=== PATIENT | male | born 1995 | race Caucasian/White ===

== ENCOUNTER 2022-01-28 17:54 | Emergency (ER) | payer BC ==
[~2022-01-28] VITALS: Ht 185.4 cm; Wt 86.2 kg
--- NOTE | 2022-01-28 18:32 | NUR ---
POISON CONTROL ([facility]) [phone] - DO NOT GIVE ROMAZICON/FLUMAZENIL (WILL CAUSE WITHDRAWAL SEIZURES) - 4-6 HOURS OBSERVATION OR UNTIL PATIENT IS BACK TO BASELINE - CMP, ALCOHOL, TYLENOL, DRUG SCREEN AND ASPIRIN LEVEL - NO NEED FOR EKG, NO EKG CHANGES EXPECTED FOR XANAX OD * CALL FOR ANY OTHER CHANGES OR IF FAMILY STATES PATIENT TOOK SOME OTHER MEDICATION WITH XANAX.
[2022-01-28 18:47] LABS: CALCIUM, SERUM 8.8 mg/dL (8.5-10.1); CARBON DIOXIDE 29 mmol/L (21-32); CHLORIDE 105 mmol/L (98-107); CREATININE 0.9 mg/dL (0.6-1.3); GLUCOSE 106 mg/dL (74-106); POTASSIUM 3.5 mmol/L (3.5-5.1); SODIUM SERUM 141 mmol/L (136-145); UREA NITROGEN, BLOOD 9 mg/dL (7-18)
[2022-01-28 18:52] LABS: ALANINE AMINOTRANSFERASE 22 U/L (12-78); ALBUMIN 3.8 g/dL (3.4-5.0); ALKALINE PHOSPHATASE 65 U/L (46-116); ASPARTATE AMINOTRANSFERASE 13 U/L (15-37); BILIRUBIN,DIRECT 0.2 mg/dL (0.0-0.2); BILIRUBIN,TOTAL 0.8 mg/dL (0.2-1.0); TOTAL PROTEIN, SERUM 7.1 g/dL (6.4-8.2)
[2022-01-28 19:05] LABS: ACETAMINOPHEN < 0 ug/ml (10-30); ALCOHOL, BLOOD < 3 mg/dL (0-0)
--- NOTE | 2022-01-28 19:11 | NUR ---
URINE SPECIMEN COLLECTED
--- NOTE | 2022-01-28 19:44 | NUR ---
COVID SWAB DONE AND SENT TO LAB
--- NOTE | 2022-01-28 19:54 | NUR ---
PATIENTS MOM IS AT BEDSIDE
[2022-01-28 20:03] LABS: BASOPHILS % (AUTO) 0.4 % (0.0-2.0); EOSINOPHILS % (AUTO) 1.1 % (0.0-6.0); HEMATOCRIT 39 % (39-51); HEMOGLOBIN 13.8 g/dL (13.5-17.5); LYMPHOCYTES # (AUTO) 1.4 K/uL (0.8-4.8); LYMPHOCYTES % (AUTO) 26.9 % (20.0-44.0); MEAN CORPUSCULAR HGB CONC 36 g/dl (31.0-36.0); MEAN CORPUSCULAR VOLUME 85 fL (80-96); MONOCYTES # (AUTO) 0.4 K/uL (0.1-1.30); MONOCYTES % (AUTO) 7.1 % (2.0-12.0); NEUTROPHILS # (AUTO) 3.5 K/uL (1.8-8.9); NEUTROPHILS % (AUTO) 64.5 % (43.0-81.0); PLATELET COUNT (AUTO) 273 K/uL (150-450); RED BLOOD CELL COUNT(AUTO) 4.58 MIL/uL (4.5-6.0); WHITE BLOOD COUNT (AUTO) 5.4 K/uL (4.3-11.0)
[2022-01-28 20:08] LABS: BILIRUBIN,URINE SMALL (NEGATIVE); COLOR,URINE YELLOW (YELLOW); LEUKOCYTE ESTERASE ,URINE NEGATIVE (NEGATIVE); NITRITE, URINE NEGATIVE (NEGATIVE); PH,URINE 6.5 (5.0-8.0); PROTEIN,URINE NEGATIVE (NEGATIVE); UGLUCOSE NEGATIVE (NEGATIVE)
--- NOTE | 2022-01-29 08:18 | NUR ---
IV removed. Catheter intact and site benign. Pressure and 4x4 applied to site. No bleeding noted.Patient discharged to home in stable condition. Written and verbal after care instructions given. Patient verbalizes understanding of instruction.
[2022-01-29 08:19] VITALS: BP 100/64
== END 2022-01-29 08:19 | disposition home or self-care (01) ==
LOC: ER 17:57
DX: T42.4X2A Poisoning by benzodiazepines, intentional self-harm, initial encounter (principal); Y92.89 Other specified places as the place of occurrence of the external cause; Z20.822 Contact with and (suspected) exposure to COVID-19; F84.5 Asperger's syndrome; F16.90 Hallucinogen use, unspecified, uncomplicated
CPT/HCPCS: 36415; 80048; 80076; 80143; 80307; 80320; 81003; 85025; 87426; 99284; C9803; G0480